=== PATIENT | male | born 1935 | race Caucasian/White ===

== ENCOUNTER → 2020-09-24 | Outpatient (CLI) | payer OTHER ==
--- NOTE | 2020-09-24 13:22 | RAD ---
EXAMINATION: MG DIAGNOSTIC BILAT CLINICAL HISTORY: Reported left breast "nodule" incidentally noted on outside nuclear cardiac stress test TECHNIQUE: Digital craniocaudal and mediolateral oblique views of the bilateral breasts obtained with 3-D tomosynthesis. COMPARISON: None available BREAST COMPOSITION: There are scattered areas of fibroglandular density. FINDINGS: No evidence of suspicious mass, calcifications, or areas of architectural distortion. Asymmetrically smaller left breast compared to the right with suggestion of increased fibroglandular density, nonspe cific. No skin thickening or nipple retraction. IMPRESSION: No mammographic evidence of malignancy. BI-RADS ASSESSMENT: Category 2: Benign RECOMMENDATION: Recommend clinical management of suspected abnormality. PQRS compliance statement - Patient information was entered into a reminder system with a target due date for the next mammogram. "Our facility is accredited by the [employer] Mammography [employer]." Electronically signed by: Ryan Patterson DO (09/24/2020 1:19 PM) [email or web address]
== END ==
LOC: MAMMO 12:22
PROVIDERS: ATTEND Surgery
DX: R92.2 Inconclusive mammogram (principal); N63.20 Unspecified lump in the left breast, unspecified quadrant
CPT/HCPCS: 77066